=== PATIENT | female | born 1980 | race African-American/Black ===

== ENCOUNTER 2018-02-03 11:10 | Emergency (ER) | payer OTHER ==
[2018-02-03] MEDS: predniSONE 20 MG TAB PO (13:23)
[2018-02-03] MEDS: ALBUTEROL 0.5% (NEB) 2.5 MG/0.5 ML AMP NEB (13:41)
[2018-02-03] MEDS: IPRATROPIUM (NEB) 0.5 MG/2.5 ML AMP NEB (13:41)
== END 2018-02-03 15:19 | disposition home or self-care (01) ==
LOC: FTE 11:10
DX: R05 Cough (principal)
CPT/HCPCS: 71045; 94644; 99283-25

== ENCOUNTER 2018-05-08 12:43 | Emergency (ER) | payer OTHER ==
[2018-05-08] MEDS: ONDANSETRON 4 MG INJ IV (15:07)
[2018-05-08] MEDS: FAMOTIDINE 20 MG INJ IV ×2 (15:07→17:53)
[2018-05-08] MEDS: SOD CHLORIDE 0.9% 1,000 ML IV (15:08)
[2018-05-08] MEDS: morphine 4 MG/ML VIAL IV (15:09)
[2018-05-08 15:21] LABS: ADD MAN DIFF? NO
[2018-05-08 15:22] LABS: BASOPHIL # 0.1 10^3/ul (0.0-0.1); BASOPHILS % 0.7 % (0.0-2.0); EOSINOPHILS # 0.6 10^3/ul (0.0-0.5); EOSINOPHILS % 5.1 % (0.0-7.0); HEMATOCRIT 38.7 % (37.0-47.0); HEMOGLOBIN 13.3 g/dl (12.0-16.0); LYMPHOCYTES % 24.8 % (15.0-51.0); MEAN CORPUSCULAR HEMOGLOBIN 26.3 pg (29.0-33.0); MEAN CORPUSCULAR HGB CONC 34.4 g/dl (32.0-37.0); MEAN CORPUSCULAR VOLUME 76.5 fl (82.0-101.0); MEAN PLATELET VOLUME 9.7 fl (7.4-10.4); MONOCYTE # 0.5 10^3/ul (0.3-0.9); MONOCYTES % 4.4 % (0.0-11.0); NEUTROPHIL # 7.8 10^3/ul (1.6-7.5); NEUTROPHILS % 64.7 % (39.0-77.0); PLATELET COUNT 340 10^3/UL (140-415); RED BLOOD COUNT 5.06 10^6/ul (4.20-5.40); RED CELL DISTRIBUTION WIDTH 14.5 % (11.5-14.5)
[2018-05-08 15:28] LABS: ADD UMIC NO; UR AMORPHOUS CRYSTAL FEW /HPF (NONE SEEN); UR ASCORBIC ACID NEGATIVE (NEGATIVE); UR BILIRUBIN (Dip) NEGATIVE (NEGATIVE); UR BLOOD (Dip) NEGATIVE (NEGATIVE); UR CLARITY SLIGHTLY CLOUDY (CLEAR); UR COLOR STRAW (YELLOW); UR GLUCOSE (Dip) NEGATIVE (NEGATIVE); UR KETONES (Dip) NEGATIVE (NEGATIVE); UR LEUKOCYTE ESTERASE (Dip) NEGATIVE Leu/ul (NEGATIVE); UR NITRITE (Dip) NEGATIVE (NEGATIVE); UR RBC 0 /HPF (0-5); UR SPECIFIC GRAVITY (Dip) 1.011 (1.003-1.030); UR SQUAMOUS EPITHELIAL CELL FEW /HPF (FEW); UR TOTAL PROTEIN (Dip) NEGATIVE (NEGATIVE); UR UROBILINOGEN (Dip) NEGATIVE (NEGATIVE); UR WBC 1 /HPF (0-5)
[2018-05-08 15:43] LABS: ALANINE AMINOTRANSFERASE 21 IU/L (13-69); ALBUMIN 4.8 g/dl (3.3-4.9); ALBUMIN/GLOBULIN RATIO 1.45; ALKALINE PHOSPHATASE 45 IU/L (42-121); ANION GAP 10 (5-13); ASPARTATE AMINO TRANSFERASE 20 IU/L (15-46); BILIRUBIN,INDIRECT 0.3 mg/dl (0-1.1); BILIRUBIN,TOTAL 0.3 mg/dl (0.2-1.3); BLOOD UREA NITROGEN 12 mg/dl (7-20); CALCIUM 10.2 mg/dl (8.4-10.2); CARBON DIOXIDE 29 mmol/L (21-31); CHLORIDE 101 mmol/L (97-110); CREATININE 0.84 mg/dl (0.44-1.00); Estimated GFR > 60 mL/min (>60); GLUCOSE 94 mg/dl (70-220); LIPASE 101 U/L (23-300); POTASSIUM 4.6 mmol/L (3.5-5.1); SODIUM 140 mmol/L (135-144); TOTAL PROTEIN 8.1 g/dl (6.1-8.1)
[2018-05-08] MEDS: ACETAMINOPHEN 325 MG TAB PO (17:05)
== END 2018-05-08 18:13 | disposition home or self-care (01) ==
LOC: FTE 12:43
DX: R10.10 Upper abdominal pain, unspecified (principal); R11.0 Nausea
CPT/HCPCS: 36415; 74176; 76705; 80053; 81001; 81003; 81025; 83690; 85025; 96361; 96374; 96375; 99285-25

== ENCOUNTER 2018-05-09 12:24 | Emergency (ER) | payer OTHER ==
[2018-05-09] MEDS: LIDOCAINE/MYLANTA 40 ML BTL PO (14:13)
[2018-05-09 14:14] LABS: ADD MAN DIFF? NO
[2018-05-09 14:19] LABS: WHITE BLOOD COUNT 8.7 10^3/ul (4.8-10.8)
[2018-05-09 14:19] LABS: BASOPHIL # 0.1 10^3/ul (0.0-0.1); BASOPHILS % 0.9 % (0.0-2.0); EOSINOPHILS # 0.9 10^3/ul (0.0-0.5); EOSINOPHILS % 9.9 % (0.0-7.0); HEMOGLOBIN 12.5 g/dl (12.0-16.0); LYMPHOCYTES # 2.8 10^3/ul (0.8-2.9); LYMPHOCYTES % 31.8 % (15.0-51.0); MEAN CORPUSCULAR HEMOGLOBIN 26.1 pg (29.0-33.0); MEAN CORPUSCULAR HGB CONC 33.8 g/dl (32.0-37.0); MEAN CORPUSCULAR VOLUME 77.2 fl (82.0-101.0); MEAN PLATELET VOLUME 9.8 fl (7.4-10.4); MONOCYTE # 0.4 10^3/ul (0.3-0.9); MONOCYTES % 4.6 % (0.0-11.0); NEUTROPHIL # 4.5 10^3/ul (1.6-7.5); NEUTROPHILS % 52.6 % (39.0-77.0); PLATELET COUNT 348 10^3/UL (140-415); RED BLOOD COUNT 4.79 10^6/ul (4.20-5.40); RED CELL DISTRIBUTION WIDTH 14.6 % (11.5-14.5)
[2018-05-09 14:37] LABS: ALANINE AMINOTRANSFERASE 26 IU/L (13-69); ALBUMIN 4.5 g/dl (3.3-4.9); ALBUMIN/GLOBULIN RATIO 1.36; ALKALINE PHOSPHATASE 38 IU/L (42-121); ANION GAP 14 (5-13); ASPARTATE AMINO TRANSFERASE 18 IU/L (15-46); BILIRUBIN,INDIRECT 0.2 mg/dl (0-1.1); BILIRUBIN,TOTAL 0.2 mg/dl (0.2-1.3); BLOOD UREA NITROGEN 11 mg/dl (7-20); CALCIUM 10.2 mg/dl (8.4-10.2); CARBON DIOXIDE 28 mmol/L (21-31); CHLORIDE 100 mmol/L (97-110); CREATININE 0.88 mg/dl (0.44-1.00); Estimated GFR > 60 mL/min (>60); GLUCOSE 105 mg/dl (70-220); LIPASE 121 U/L (23-300); POTASSIUM 4.9 mmol/L (3.5-5.1); SODIUM 142 mmol/L (135-144); TOTAL PROTEIN 7.8 g/dl (6.1-8.1)
== END 2018-05-09 15:37 | disposition home or self-care (01) ==
LOC: FTE 12:24
DX: R10.9 Unspecified abdominal pain (principal)
CPT/HCPCS: 80053; 83690; 85025; 99283

== ENCOUNTER 2018-08-08 13:44 | Emergency (ER) | payer OTHER ==
[2018-08-08] MEDS: ACETAMINOPHEN 325 MG TAB PO (15:48)
[2018-08-08 17:19] LABS: URINE BLOOD (Dip) POC Negative (NEGATIVE); URINE GLUCOSE (Dip) POC Negative (NEGATIVE); URINE KETONES (Dip) POC Negative (NEGATIVE); URINE LEUKOCYTE EST (Dip) POC Negative (NEGATIVE); URINE NITRITE (Dip) POC Negative (NEGATIVE); URINE TOTAL PROTEIN POC Negative (NEGATIVE)
== END 2018-08-08 17:49 | disposition home or self-care (01) ==
LOC: FTE 13:44
DX: S33.5XXA Sprain of ligaments of lumbar spine, initial encounter (principal); S13.9XXA Sprain of joints and ligaments of unspecified parts of neck, initial encounter; V89.2XXA Person injured in unspecified motor-vehicle accident, traffic, initial encounter
CPT/HCPCS: 72040; 72100; 81003; 81025; 99283-25